=== PATIENT | male | born 1945 | race Caucasian/White ===

== ENCOUNTER → 2016-10-14 | Outpatient (CLI) | payer BC | LOC: FIMAGING 15:50 | PROVIDERS: ATTEND Physician Assistant | DX: R05 Cough (principal); R91.1 Solitary pulmonary nodule ==

== ENCOUNTER → 2017-01-17 | Outpatient (CLI) | payer BC | LOC: FIMAGING 09:43 | PROVIDERS: ATTEND Psychiatry & Neurology Neurology | DX: M54.5 Low back pain (principal); R26.9 Unspecified abnormalities of gait and mobility; G62.9 Polyneuropathy, unspecified ==

== ENCOUNTER → 2019-02-06 | Outpatient (CLI) | payer BC | LOC: FIMAGING 13:08 ==